=== PATIENT | male | born 1955 | race Caucasian/White ===

== ENCOUNTER 2016-05-20 09:51 | Day surgery (SDC) | payer OTHER ==
[~2016-05-20] VITALS: Ht 182.9 cm; Wt 101.2 kg
[~2016-05-20 09:51] MED LIST: ALBU1AER INH; ALPR-138 PO; AMIO200 PO; ASPI81TA45 PO; CARV6.252 PO; DABI150 PO; FURO80 PO; LIPI80TA16 PO; LISI-357 PO; LORTA5 PO; NITR0.4S SL; SPIR25TA PO; TAMS0.4C4 PO
[2016-05-20] MEDS ORDERED: SPIR25TA PO (10:54)
[2016-05-20] MEDS ORDERED: ATOR1TAB18 PO (10:54)
[2016-05-20] MEDS ORDERED: HYDR-3533 PO (10:54)
[2016-05-20] MEDS ORDERED: PRAD150C PO (10:54)
[2016-05-20] MEDS ORDERED: TAMS0.4C4 PO (10:54)
[2016-05-20] MEDS ORDERED: FURO80TA PO (10:54)
[2016-05-20] MEDS ORDERED: CORE25TA PO (10:54)
[2016-05-20] MEDS ORDERED: AMIO200T PO (10:54)
[2016-05-20] MEDS ORDERED: ASPI1TAB69 PO (10:54)
[2016-05-20] MEDS ORDERED: NITR0.4S SL (10:54)
[2016-05-20] MEDS ORDERED: ALPR.25 PO (10:54)
[2016-05-20] MEDS ORDERED: SACU1TAB7 PO (10:54)
[2016-05-20 11:01] VITALS: BP 108/67; PULSE 60; RESP 18; TEMP 98; O2SAT 94
[2016-05-20] MEDS ORDERED: CHLORHEXIDINE GLUCONATE 2 % 1 PACK (2 CLOTHS) TOP SCH (11:15)
[2016-05-20] MEDS ORDERED: POVIDONE IODINE 5% (ANTISEPSIS KIT) 4 APPLICATIONS EACH NARE SCH (11:15)
[2016-05-20] MEDS ORDERED: ceFAZolin 2 GM PREMIX 50 ML IV SCH (11:15)
[2016-05-20] MEDS ORDERED: METOPROLOL TARTRATE 25 MG TAB PO PRN (11:15)
[2016-05-20] MEDS ORDERED: INSULIN HUMAN REGULAR 1,000 UNITS/10 ML VIAL SQ PRN (11:15)
[2016-05-20] MEDS ORDERED: LORazepam 1 MG TAB SL SCH (11:15)
[2016-05-20] MEDS ORDERED: VANCOMYCIN 1000 MG/NS 250 ML IV SCH ×2 (11:15)
[2016-05-20 11:22] LABS: AUTOMATED NEUTROPHIL # 6.6 TH/MM3 (1.8-7.7); BASOPHIL # 0.1 TH/MM3 (0-0.2); BASOPHIL % 0.9 % (0.0-2.0); EOSINOPHIL # 0.2 TH/MM3 (0-0.4); EOSINOPHIL % 2.5 % (0.0-4.0); HEMATOCRIT 45.9 % (39.0-51.0); HEMO FLAGS DIFF FINAL; LYMPH % 20.9 % (9.0-44.0); MEAN CELL VOLUME 91.9 FL (80.0-100.0); MEAN CORPUSCULAR HEMOGLOBIN 31.5 PG (27.0-34.0); MEAN CORPUSCULAR HGB CONC 34.3 % (32.0-36.0); MONO % 8.2 % (0.0-8.0); NEUT % 67.5 % (16.0-70.0); PLATELET COUNT 199 TH/MM3 (150-450); RED CELL DISTRIBUTION WIDTH 13.7 % (11.6-17.2); WHITE BLOOD COUNT 9.8 TH/MM3 (4.0-11.0)
[2016-05-20 11:29] LABS: APTT (PATIENT) 31.5 SEC (24.3-30.1); PROTHROMBIN TIME - PATIENT 11.4 SEC (9.8-11.6)
[2016-05-20 11:39] LABS: BICARBONATE 28.8 MEQ/L (21.0-32.0); POTASSIUM 4.9 MEQ/L (3.5-5.1)
[2016-05-20] MEDS ORDERED: SODIUM CHLORID 0.9% 500 ML IV SCH (12:00)
[2016-05-20] MEDS ORDERED: LACTATED RINGER'S 1000 ML IV SCH (12:00)
[2016-05-20] MEDS ORDERED: MUPIROCIN 2% OINT 1 APPLIC/GM SYR NASAL SCH (12:00)
[2016-05-20] MEDS ORDERED: NS 1000 ML IV SCH (12:00)
[2016-05-20] MEDS ORDERED: VANCOMYCIN 500 MG VIAL ONE (15:38)
[2016-05-20] MEDS ORDERED: LIDOCAINE HCL 2% 50 ML VIAL ONE (15:38)
[2016-05-20] MEDS ORDERED: PROPOFOL 200 MG/20 ML AMP IV ONE (15:56)
[2016-05-20] MEDS ORDERED: PHENYLEPHRINE HCL 10 MG/ML VIAL IV ONE (15:56)
[2016-05-20] MEDS ORDERED: KETAMINE HCL 500 MG/5 ML VIAL ONE (16:17)
[2016-05-20] MEDS ORDERED: MIDAZOLAM HCL 2 MG/2 ML VIAL ONE (16:17)
[2016-05-20] MEDS ORDERED: SODIUM CHLORIDE 0.9% FLUSH 5 ML FLUSH IVF PRN (19:45)
[2016-05-20] MEDS ORDERED: HYDR-3366 PO (19:48)
[2016-05-20] MEDS ORDERED: CEPH-460 PO (19:48)
[2016-05-20] MEDS ORDERED: SODIUM CHLORIDE 0.9% FLUSH 5 ML FLUSH IVF SCH (21:00)
--- NOTE | 2016-05-21 23:03 | EKG ---
Date Performed: 05/20/2016 Time Performed: 11:07:56 PTAGE: 60 years EKG: Ventricular pacing Pacemaker rhythm - Atrial fibrillation Abnormal ECG PREVIOUS TRACING : 11/21/2015 04.16 DOCTOR: Jonathan Spicer Interpretating Date/Time 05/21/2016 22:54:14
--- NOTE | 2016-06-04 17:13 | MP ---
cc: PINA BETANCUR M.D. DATE OF SURGERY 05/10/16 PROCEDURE Biventricular pacer defibrillator removal, biventricular pacer defibrillator replacement. INDICATIONS Mr. Landers is a 60-year-old gentleman with congestive heart failure class III, ejection fraction 15%, on optimal medical treatment, previous biventricular pacer defibrillator implanted. Generator is end of life, admitted for generator replacement and device testing. The risks, the nature and the benefit of the procedure are clearly stated to him. Risks include pneumothorax, cardiac perforation, stroke, infection and even . The patient understood and agreed to proceed. PROCEDURE IN DETAIL After written informed consent was obtained, the patient was brought to the EP lab where he was prepped and draped in the usual sterile fashion. Conscious sedation was initiated and maintained throughout the procedure by anesthesiologist. Once sedation was verified, the left infraclavicular area over the existing generator was anesthetized with 2% Xylocaine. Using a #11 scalpel, a 3-cm incision was made over the existing generator. Dissection was then taken down to deep fascial layer using Bovie cautery and blunt dissection. Once exposed generator was removed from the pocket, scar tissue was removed around the lead. Pocket was expanded. Pocket revision was performed. Then the lead was connected to the new generator and placed into the pocket. Because of the patient's low blood pressure and severe heart failiure, I decided not to proceed with device testing. I did proceed with wound closure. The deep fascial layer was approximated using 2-0 Vicryl suture in a continuous fashion. The subcutaneous layer was approximated using #2-0 Vicryl suture in a continuous fashion. The subcuticular layer was approximated using 2-0 Vicryl suture in a continuous fashion. Dermabond adhesive was applied to the wound followed by a sterile pressure dressing. There was no complication. The patient tolerated procedure. Blood loss minimal. EXPLANTED HARDWARE The explanted biventricular pacer defibrillator is a [employer] model number [id number], serial number [id number]. That was implanted in 2011. IMPLANTED HARDWARE The implanted biventricular pacer defibrillator is a [employer] model number [id number], serial [id number]. THRESHOLD Right atrial pacing threshold in bipolar mode was not measured. The patient in atrial fibrillation on and off. Lead impedance 400 ohms. P-wave at 3.5 mV. The right ventricular pacing threshold in bipolar mode was one volts at 0.5 milliseconds. Lead impedance 570 ohms, R-wave at 16.5 mV. The left ventricular pacing threshold in bipolar mode was 1.5 at 0.5 milliseconds. Lead impedance 242 ohms. SETTING The device set at DDD 60, VVI 60. LV first by 40 milliseconds, upper limit 130 beats per minute. Defibrillatory portion for two zones was ventricular tachycardia between 165-240 beats per minute. Initial therapy consists of one burst of ATP, one amp 81%, 10 pulse segmental followed by 20 then 25 and all subsequently shocks at 35 joule defibrillatory shock, Second zone for ventricular fibrillation above 230 beats per minute. First therapy at 25 and also subsequent shocks at 35 defibrillatory shock. CONCLUSION Stressful biventricular pacer defibrillator removal, biventricular pacer defibrillator replacement, pocket revision, RECOMMENDATIONS The patient is going to be transferred to telemetry unit. Will be observed. When stable, can be discharged home. MD PALMA Tenorio/ /4:07 PM /4:57 PM
== END 2016-05-20 20:35 | disposition home or self-care (01) ==
LOC: HDOC 09:51 → HDIC 09:52 → HDOC 20:35
PROVIDERS: ATTEND Internal Medicine Interventional Cardiology
DX: Z45.02 Encounter for adjustment and management of automatic implantable cardiac defibrillator (principal); I11.0 Hypertensive heart disease with heart failure; I50.9 Heart failure, unspecified; I25.5 Ischemic cardiomyopathy; I48.91 Unspecified atrial fibrillation; I44.0 Atrioventricular block, first degree; I25.2 Old myocardial infarction; R06.00 Dyspnea, unspecified
CPT/HCPCS: 33264; 80048; 85025; 85610; 85730; 86850; 86900; 86901; 93005; C1882; J2250; J2370; J3010; J3370

== ENCOUNTER → 2016-07-05 | Day surgery (SDC) | payer OTHER ==
[~2016-07-05] MED LIST changes: -ALBU1AER INH; -ALPR-138 PO; +ALPR.25 PO; -AMIO200 PO; +AMIO200T PO; +ASPI1TAB69 PO; -ASPI81TA45 PO; +ATOR1TAB18 PO; -CARV6.252 PO; +CEPH-460 PO; +CORE25TA PO; -DABI150 PO; -FURO80 PO; +FURO80TA PO; +HYDR-3366 PO; +HYDR-3533 PO; +LACTATED RINGER'S 1000 ML INJ 1,000 ML ONE; -LIPI80TA16 PO; -LISI-357 PO; -LORTA5 PO; +PRAD150C PO; +PROPOFOL 500 MG/50 ML BTL IV ONE; +SACU1TAB7 PO
== END | disposition home or self-care (01) ==
LOC: ESDC 10:02
PROVIDERS: ATTEND Internal Medicine Gastroenterology
DX: Z12.11 Encounter for screening for malignant neoplasm of colon (principal); Z86.010 Personal history of colon polyps; K57.90 Diverticulosis of intestine, part unspecified, without perforation or abscess without bleeding; K92.1 Melena; K22.9 Disease of esophagus, unspecified; K29.70 Gastritis, unspecified, without bleeding
CPT/HCPCS: 00740; 00810; 43239; 45378; 88305; 88312; J3010; J7120